=== PATIENT | male | born 1940 | race Caucasian/White ===

== ENCOUNTER 2017-03-21 07:39 | Day surgery (SDC) | payer MEDICARE, OTHER ==
[2017-03-20 09:29] LABS: HEMATOCRIT 41.7 % (40.0-51.0); HEMOGLOBIN 14.3 g/dL (13.6-17.8)
[2017-03-20 09:43] LABS: A/G RATIO 1.1 (0.7-1.9); ALBUMIN 3.8 G/DL (3.5-5.0); ALKALINE PHOSPHATASE 99 U/L (45-117); CALCIUM, SERUM 8.9 MG/DL (8.5-10.4); CHLORIDE, SERUM 110 MMOL/L (96-112); CO2 (CARBON DIOXIDE) 27 MMOL/L (24-34); CREATININE 0.83 MG/DL (0.70-1.30); GFR AFRICAN AMERICAN 100 ML/MIN (>=60); GFR NON AFRICAN AMERICAN 87 ML/MIN (>=60); GLOBULIN 3.4 G/DL (2.5-4.1); POTASSIUM, SERUM 3.6 MMOL/L (3.5-5.3); SGOT(AST) 23 U/L (5-40); SGPT(ALT) 36 U/L (5-65); SODIUM, SERUM 143 MMOL/L (135-148); TOTAL BILIRUBIN 0.4 MG/DL (0-1.2); TOTAL PROTEIN 7.2 G/DL (6.0-8.5)
[2017-03-20 09:44] LABS: BUN (BLOOD UREA NITROGEN) 23 MG/DL (6-23); GLUCOSE, SERUM 127 MG/DL (60-99)
--- NOTE | ~2017-03-21 | OP ---
Record Of Operation [address] [place]. [address] NAME: RYLEE DELVALLE : 44 [place] [facility] [place] [id number] AGE: 76 ADM/REG DATE : 03/21/17 MR#: [id number] REPORT SERV DATE: 03/21/17 DICTATED BY: RUDI SOSA DATE: 03/21/17 REPORT STATUS : Draft TRANSCRIBED BY: MODL DATE: 03/21/17 DATE OF PROCEDURE: 03/21/2017 PREOPERATIVE DIAGNOSIS: Bilateral inguinal hernia. POSTOPERATIVE DIAGNOSIS: Bilateral inguinal hernia. PROCEDURE: Laparoscopic reduction and mesh patch repair of bilateral inguinal hernia. SURGEON: Rudi Sosa M.D. DESCRIPTION OF OPERATIVE PROCEDURE: The patient was brought to the operating suite, placed in the supine position, underwent satisfactory general endotracheal anesthesia without incident. The skin of the abdomen was scrubbed, prepped, and draped in usual sterile fashion. 0.5% Marcaine with epinephrine was utilized as supplemental local anesthesia at all intended trocar sites. Initially, an infraumbilical incision was performed dissecting through the skin and subcutaneous tissue to the umbilical fascia. Inferolateral retraction to the left exposed the medial aspect of the left anterior rectus sheath. This was incised longitudinally and the medial aspect of the left rectus muscle was identified and retracted laterally exposing the left posterior rectus sheath. A preperitoneal dissection balloon was inserted posterior to the left rectus sheath to the level of pubic tubercle. It was insufflated under direct camera visualization creating a preperitoneal dissection plane bilaterally. This balloon was then replaced with a structural balloon and CO2 was insufflated into the preperitoneal space for pressures of 15 mmHg throughout the case. Two additional 5 mm trocars were established in infraumbilical midline under direct visualization. The patient had bilateral direct defects, left side larger than the right. Hesselbach triangle of the inferior epigastric vessels in the cord structures were skeletonized. Two separately placed pieces of Bard 3DMax mesh size large oriented left and right were dipped in local anesthesia, they were rolled up and placed in the preperitoneal space, allowed to unroll over the inguinal canals bilaterally. The mesh was allowed to cover Hesselbach's triangle of the inferior epigastric vessels and allowing the cord structures to egress below the lower edge of the mesh. Multiple firings of the 5 mm helical tacker were utilized to plicate the mesh in position. Hemostasis was assured. CO2 was allowed to egress from the preperitoneal space and it was milked out, then the trocars were removed. No muscular bleeding was noted. The posterior rectus fascia and peritoneum was opened to allow CO2 to escape from the peritoneal cavity proper, then layered closure of the left posterior rectus sheath, and left anterior rectus sheath with [id number] suture of 0 Vicryl. Subcutaneous tissue closed Record Of Operation [place] [id number] [place]. [address] NAME: RYLEE DELVALLE : 44 STATUS : REG [facility] PAT#: [id number] AGE: 76 ADM/REG DATE : 03/21/17 MR#: [id number] REPORT SERV DATE: 03/21/17 DICTATED BY: RUDI SOSA DATE: 03/21/17 REPORT STATUS : Draft TRANSCRIBED BY: ESTRADA DATE: 03/21/17 at all sites with interrupted 4-0 Vicryl and then a running subcuticular stitch of 4-0 Vicryl for the skin. Dermabond skin adhesive placed. The patient tolerated the procedure well and was returned to PACU in stable condition. At termination of procedure, sponge, needle, lap, and instrument counts were correct x3. ESTIMATED BLOOD LOSS: Less than 5 mL. INDIO/ESTRADA Rudi Sosa M.D. / [id number] CC: Janel Lopez M.D.
[~2017-03-21 07:39] MED LIST: ADVIL PO; ASA5GR PO; ASAB PO; CARDURA1 MG PO; CO Q-10100 MG PO; COREG3 PO; CYANO1000T PO; DETROLLA4 PO; FLOMAX4 PO; LORTAB 7.5/325 PO; MULTIPLE VIT PO; NORV5 PO; VESICARE5 PO; VITAMIN D1000 UNI1 PO; ZOCOR20 PO; ZOCOR40 PO
== END 2017-03-21 18:00 | disposition home or self-care (01) ==
LOC: SDC 07:39
PROVIDERS: Specialist
PROC: 0YUA4JZ Supplement Bilateral Inguinal Region with Synthetic Substitute, Percutaneous Endoscopic Approach (ICD-10-PCS; principal; 2017-03-21 09:00)
DX: K40.20 Bilateral inguinal hernia, without obstruction or gangrene, not specified as recurrent (principal); I10 Essential (primary) hypertension; I25.10 Atherosclerotic heart disease of native coronary artery without angina pectoris; Z95.1 Presence of aortocoronary bypass graft; Z79.1 Long term (current) use of non-steroidal anti-inflammatories (NSAID); Z79.82 Long term (current) use of aspirin; Z79.899 Other long term (current) drug therapy; Z96.653 Presence of artificial knee joint, bilateral; Z98.42 Cataract extraction status, left eye; Z98.890 Other specified postprocedural states
CPT/HCPCS: 80053; 85014; 85018; 93005; A9270-GY; C1726; C1727; C1781; J0690; J2270; J2405; J2710; J3010